=== PATIENT | male | born 1965 | race Caucasian/White ===

== ENCOUNTER → 2020-06-14 | Outpatient (CLI) | payer OTHER ==
--- NOTE | 2020-06-14 14:15 | Diagnostic Imaging Report ---
MRI of the right ankle without contrast. History: Ankle pain. Spontaneous rupture of tendon posterior and medial. Swelling. Technique: Utilizing a high-field 1.5T magnet, the following sequences were acquired: PD FS in all 3 planes with additional axial PD. Comparison: None. Findings: Achilles tendon and plantar fascia: Marked masslike thickening with fatty infiltration of the distal Achilles tendon just proximal to the posterior calcaneal insertion site. This is best seen on sagittal series 5 image 12 through 15. Bone spur at the posterior calcaneal insertion site. No Achilles tendon tear or retraction. Mild adjacent soft tissue edema. Thickening and mid substance degeneration involving the medial cord of the plantar fascia at the inferior calcaneal insertion site with mild adjacent soft tissue edema. Small bone spur at the inferior calcaneal insertion site. No tear or retraction. Cartilage and bone: Small lateral talar dome osteochondral lesion with mild bone marrow edema best seen on coronal image 15 and 16. No free fragmentation or sign of instability. No acute fracture or dislocation. Flat foot deformity. Marked bone marrow edema in the mid/anterior calcaneus and in the adjacent talus with what appears to be a stress type fracture through the anterior/mid talus best seen on sagittal image 14 series 6. There is adjacent soft tissue edema and there is marked loss of height and obliteration of the fat in the sinus tarsi. Scattered degenerative change about the remaining visualized osseous structures most pronounced in the proximal cuboid bone. Medial ankle: Scarring and degeneration of the deltoid ligament complex. The majority of the fibers are intact. Distal posterior tibial tendinosis with partial tearing and adjacent soft tissue edema. This is best seen on series 4 image 24 through 28. There is a small accessory navicular bone. There is a prominent bone spur at the posterior medial malleolus best seen on series 4 image 23. The remainder of the medial flexor tendons are intact. Lateral ankle: Scarring and attenuation of the anterior talofibular and calcaneofibular ligaments. The posterior talofibular ligaments are intact. Scarring and degeneration of the syndesmotic ligament complex with adjacent soft tissue edema and effusions/synovitis at the lateral ankle. Peroneus brevis tendinosis with splitting of the tendon at the tip of the fibula and adjacent soft tissue edema best seen on series 2 image 23 through 27. The retinacular tissues are intact. No subluxation is seen. The peroneus longus tendon is intact. Anterior ankle: The anterior extensor tendons are normal. Other findings: Tibiotalar joint effusion and synovitis. Impression: Distal posterior tibial tendinosis with partial tearing and adjacent soft tissue edema. Prominent bone spur at the posterior medial malleolus. Peroneus brevis tendinosis with splitting of the tendon at the tip of the fibula and adjacent soft tissue edema. Marked bone marrow edema in the mid/anterior calcaneus and in the adjacent talus with what appears to be a stress type fracture through the anterior/mid talus. There is adjacent soft tissue edema and there is marked loss of height and obliteration of the fat in the sinus tarsi. 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 Marked masslike thickening with fatty infiltration of the distal Achilles tendon just proximal to the posterior calcaneal insertion site. No Achilles tendon tear or retraction. Mild adjacent soft tissue edema. Thickening and mid substance degeneration involving the medial cord of the plantar fascia at the inferior calcaneal insertion site with mild adjacent soft tissue edema. Findings consistent with chronic plantar fasciitis. Tibiotalar joint effusion and synovitis. Signed by: Dr. Jorge Ellison M.D. on 06/14/2020 2:12 PM
== END ==
LOC: MRI 12:30
PROVIDERS: ATTEND Podiatrist Foot & Ankle Surgery
DX: S86.011A Strain of right Achilles tendon, initial encounter (principal); M66.861 Spontaneous rupture of other tendons, right lower leg